=== PATIENT | female | born 1985 | race African-American/Black ===

== ENCOUNTER 2017-06-22 09:58 | Emergency (ER) | payer OTHER ==
[~2017-06-22] VITALS: Ht 165.1 cm; Wt 140.3 kg
[~2017-06-22 09:58] MED LIST: ASPIR 8181 M1 PO; Aspirin Chewable PO; CARAFATE100 MG/ML PO; DOCUSATE SODIU100 MG PO; ENDOCET 5-3251 EACH PO; IBUPROFEN800 MG PO; LOVENOX40 MG/0.4 SC; Motrin PO; NATALCARE RX1 TABLET PO; NORCO 5/3251 TABLET PO; PLAQUENIL200 MG PO; PRENATAL TABLE1 EAC3 PO; Percocet 5/325,Endoc PO; Plaquenil PO; TORADOL10 MG PO; TYLENOL EXTRA500 MG PO
[2017-06-22 12:01] VITALS: BP 134/64
== END 2017-06-22 12:03 | disposition home or self-care (01) ==
LOC: EME 09:58
DX: R60.0 Localized edema (principal); M32.9 Systemic lupus erythematosus, unspecified; F17.200 Nicotine dependence, unspecified, uncomplicated
CPT/HCPCS: 93971; 99281; 99284

== ENCOUNTER 2017-09-01 23:42 | Emergency (ER) | payer OTHER ==
[~2017-09-01] VITALS: Ht 165.1 cm; Wt 139.4 kg
[2017-09-02 00:12] LABS: HEMATOCRIT 37.9 % (36.0-46.0); HEMOGLOBIN 11.8 G/DL (11.9-15.5); MCH 23.4 PG (29.0-34.0); MCHC 31.1 G/DL (30.0-36.0); MCV 75.2 FL (83-99); PLATELET COUNT 224 K/uL (156-360); RBC DIS.WIDTH-CV 14.7 % (11.8-14.6); RBC DIS.WIDTH-SD 40.1 % (39-53); RED BLOOD COUNT 5.04 M/uL (3.80-5.20); WHITE BLOOD COUNT 12.4 K/uL (4.1-10.2)
[2017-09-02 00:25] LABS: CHLORIDE 105 mEq/L (99-109); POTASSIUM 3.5 mEq/L (3.7-5.4); SODIUM 139 mEq/L (136-147)
[2017-09-02 00:27] LABS: GLUCOSE 83 mg/dL (70-99)
[2017-09-02 00:30] LABS: CREATININE 0.8 mg/dL (0.6-1.3); GFR ESTIMATE (CALCULATED) > 59 mL/min/
[2017-09-02 00:31] LABS: UREA NITROGEN (BUN) 10 mg/dL (9-23)
[2017-09-02 00:34] LABS: TROP-I INTERPRETATION NEGATIVE; TROPONIN-I < 0.01 ng/mL (0.0-0.30)
[2017-09-02] MEDS ORDERED: VENTOLIN HFA18 GM IH (03:35)
[2017-09-02] MEDS ORDERED: MEDROL DOSEPAK4 MG PO (03:35)
[2017-09-02 04:34] VITALS: BP 129/67
== END 2017-09-02 04:53 | disposition home or self-care (01) ==
LOC: EME 23:42
DX: R06.02 Shortness of breath (principal); R06.2 Wheezing; R05 Cough; R07.89 Other chest pain; Z87.891 Personal history of nicotine dependence
CPT/HCPCS: 71046; 80048; 84484; 85027; 93005; 94640; 94640 76; 99281; 99284; J7512

== ENCOUNTER 2018-02-01 16:20 | Emergency (ER) | payer OTHER ==
[~2018-02-01] VITALS: Ht 165.1 cm; Wt 132.0 kg
[~2018-02-01 16:20] MED LIST changes: +MEDROL DOSEPAK4 MG PO; +VENTOLIN HFA18 GM IH
[2018-02-01 17:22] LABS: HEMATOCRIT 36.6 % (36.0-46.0); HEMOGLOBIN 11.6 G/DL (11.9-15.5); MCH 23.9 PG (29.0-34.0); MCHC 31.7 G/DL (30.0-36.0); MCV 75.3 FL (83-99); PLATELET COUNT 166 K/uL (156-360); RBC DIS.WIDTH-CV 15.4 % (11.8-14.6); RED BLOOD COUNT 4.86 M/uL (3.80-5.20); WHITE BLOOD COUNT 11.5 K/uL (4.1-10.2)
[2018-02-01 17:28] LABS: CHLORIDE 108 mEq/L (99-109); POTASSIUM 3.4 mEq/L (3.7-5.4); SODIUM 141 mEq/L (136-147)
[2018-02-01 17:29] LABS: GLUCOSE 75 mg/dL (70-99)
[2018-02-01 17:33] LABS: CREATININE 0.8 mg/dL (0.6-1.3); GFR ESTIMATE (CALCULATED) > 59 mL/min/
[2018-02-01 17:34] LABS: UREA NITROGEN (BUN) 8 mg/dL (9-23)
[2018-02-01 18:18] LABS: QUANTITATIVE HCG < 4.0 MIU/ML
[2018-02-01 18:23] LABS: APPEARANCE CLOUDY ((CLEAR)); BILIRUBIN NEGATIVE; BLOOD SMALL; COLOR YELLOW ((YELLOW)); GLUCOSE (STRIP) NEGATIVE; KETONES 5; LEUKOCYTES LARGE; NITRITE POSITIVE; PROTEIN (STRIP) 100; SPECIFIC GRAVITY 1.023 (1.000-1.030); UROBILINOGEN 0.2 MG/DL (0.2-1.0)
[2018-02-01 19:14] LABS: BACTERIA 1+ /HPF; EPITHELIAL CELLS 1+ /HPF; MUCUS NONE SEEN /LPF; UCUL ADDED? YES; WHITE BLOOD CELLS TNTC /HPF (0-5)
[2018-02-01] MEDS ORDERED: ZOFRAN ODT4 MG PO (19:55)
[2018-02-01] MEDS ORDERED: NAPROSYN500 MG PO (19:55)
[2018-02-01] MEDS ORDERED: KEFLEX500 MG PO (19:55)
[2018-02-01 20:16] VITALS: BP 126/75
== END 2018-02-01 20:17 | disposition home or self-care (01) ==
LOC: RME 16:20 → EME 16:20 → RME 20:17
DX: N39.0 Urinary tract infection, site not specified (principal); B96.1 Klebsiella pneumoniae [K. pneumoniae] as the cause of diseases classified elsewhere; Z16.11 Resistance to penicillins; R06.2 Wheezing; M32.9 Systemic lupus erythematosus, unspecified; N20.0 Calculus of kidney; Z87.891 Personal history of nicotine dependence; Z90.49 Acquired absence of other specified parts of digestive tract; Z86.79 Personal history of other diseases of the circulatory system; Z88.5 Allergy status to narcotic agent
CPT/HCPCS: 74176; 80048; 81003; 84702; 85027; 87077; 87086; 87186; 99281; 99284

== ENCOUNTER 2018-03-29 16:04 | Emergency (ER) | payer OTHER ==
[~2018-03-29] VITALS: Ht 165.1 cm; Wt 127.2 kg
[~2018-03-29 16:04] MED LIST changes: +KEFLEX500 MG PO; +NAPROSYN500 MG PO; +ZOFRAN ODT4 MG PO
[2018-03-29 17:35] VITALS: BP 122/80
== END 2018-03-29 18:39 | disposition home or self-care (01) ==
LOC: RME 16:04 → EME 16:04 → RME 18:39
DX: H57.12 Ocular pain, left eye (principal); H57.8 Other specified disorders of eye and adnexa; F17.200 Nicotine dependence, unspecified, uncomplicated
CPT/HCPCS: 99281; 99283